=== PATIENT | male | born 1960 | race Caucasian/White ===

== ENCOUNTER 2019-02-27 21:03 | Emergency (ER) | payer BC ==
[~2019-02-27] VITALS: Ht 177.8 cm; Wt 83.2 kg
[2019-02-27] MEDS ORDERED: CEPHALEXIN500 M2 PO (22:18)
[2019-02-27 22:25] VITALS: BP 133/87
[2019-02-27] MEDS ORDERED: ZESTRIL2.5 M1 PO (22:33)
[2019-02-27] MEDS ORDERED: METOPROLOL SUCC25 M1 PO (22:34)
[2019-02-27] MEDS ORDERED: ATORVASTATIN CA40 MG PO (22:34)
== END 2019-02-27 22:25 | disposition home or self-care (01) ==
LOC: ED 21:03
DX: S51.812A Laceration without foreign body of left forearm, initial encounter (principal); I10 Essential (primary) hypertension; I25.2 Old myocardial infarction; I25.10 Atherosclerotic heart disease of native coronary artery without angina pectoris; E78.5 Hyperlipidemia, unspecified; Z95.5 Presence of coronary angioplasty implant and graft; Z23 Encounter for immunization; Z88.8 Allergy status to other drugs, medicaments and biological substances; W31.9XXA Contact with unspecified machinery, initial encounter; Y92.009 Unspecified place in unspecified non-institutional (private) residence as the place of occurrence of the external cause
CPT/HCPCS: 90715

== ENCOUNTER 2019-03-07 19:07 | Emergency (ER) | payer BC ==
[~2019-03-07 19:07] MED LIST: ATORVASTATIN CA40 MG PO; CEPHALEXIN500 M2 PO; METOPROLOL SUCC25 M1 PO; ZESTRIL2.5 M1 PO
[2019-03-07 19:10] VITALS: BP 137/81
== END 2019-03-07 19:22 | disposition home or self-care (01) ==
LOC: ED 19:07
DX: S51.812D Laceration without foreign body of left forearm, subsequent encounter (principal)